=== PATIENT | male | born 1995 | race African-American/Black ===

== ENCOUNTER 2016-10-21 16:10 | Emergency (ER) | payer SELFPAY ==
[~2016-10-21] VITALS: Ht 180.3 cm; Wt 68.0 kg
--- NOTE | 2016-10-21 16:30 | Emergency Room Report ---
History of Present Illness General Chief Complaint: Upper Respiratory Illness Source: Patient Present Illness HPI 21-year-old male presents emergency department complaining of dry cough x2 weeks denies nausea vomiting fevers chills denies productive sputum denies runny nose. Patient states in the past he has had a history of bronchitis. Patient states he took Robitussin with no relief he feels that it increased his coughing. She states he is up-to-date with vaccinations denies ill contacts or recent travel, denies rashes. Has history of asthma, COPD or smoking. Denies CP , Palpitations, LOC, AMS, dizziness, Changes in Vision, Sensation, paresthesias , or a sudden severe headache. Allergies: Coded Allergies: No Known Allergies (Unverified , 10/21/16) Patient History Past Medical History: see triage record Past Surgical History: none Pertinent Family History: none Immunizations: UTD Reviewed Nursing Documentation: PMH: Agreed, PSxH: Agreed Nursing Documentation-PMH Past Medical History: No Stated History Review of Systems All Other Systems: negative except mentioned in HPI Physical Exam Vital Signs Date Time Temp Pulse Resp B/P Pulse Ox O2 Delivery O2 Flow Rate FiO2 10/21/16 16:15 98.8 83 14 99/61 97 10/21/16 16:23 Room Air Sp02 EP Interpretation: reviewed, normal General Appearance: no apparent distress, alert, GCS 15, non-toxic Head: normocephalic, atraumatic Eyes: bilateral eye PERRL, bilateral eye normal inspection ENT: hearing grossly normal, normal pharynx, no angioedema, normal voice Neck: full range of motion, supple/symm/no masses Respiratory: chest non-tender, lungs clear, normal breath sounds, speaking full sentences Cardiovascular #1: regular rate, rhythm, no edema Cardiovascular #2: 0 carotid (R), 0 carotid (L), 0 radial (R), 0 radial (L), 0 femoral (R), 0 femoral (L), 0 dorsalis pedis (R), 0 dorsalis pedis (L) Gastrointestinal: non tender, soft, no guarding, no rebound Rectal: deferred Genitourinary: normal inspection, no CVA tenderness Musculoskeletal: back normal, gait/station normal, normal range of motion, non- tender, no calf tenderness Neurologic: alert, oriented x3, responsive, motor strength/tone normal, sensory intact, speech normal Psychiatric: judgement/insight normal, memory normal, mood/affect normal, no suicidal/homicidal ideation Skin: normal color, no rash, warm/dry, well hydrated Lymphatic: no adenopathy Medical Decision Making PA Attestation Dr. Singh is my supervising Physician whom patient management has been discussed with. Diagnostic Impression: Primary Impression: Upper respiratory infection Qualified Codes: J06.9 - Acute upper respiratory infection, unspecified; B97.89 - Other viral agents as the cause of diseases classified elsewhere ER Course 21-year-old male presents emergency department complaining of dry cough x2 weeks denies nausea vomiting fevers chills denies productive sputum denies runny nose. Patient states in the past he has had a history of bronchitis. Patient states he took Robitussin with no relief he feels that it increased his coughing. She states he is up-to-date with vaccinations denies ill contacts or recent travel. Has history of asthma, COPD or smoking. Ddx considered but are not limited to URI, pneumonia, PE, strep pharyngitis, meningitis. Vital signs: Pt. is afebrile, the remaining VS are WNL H&PE are most consistent with URI- no meningeal signs, oropharynx is not involved, no evidence of bacterial infection at this time. ORDERS: none required at this time, the diagnosis is clinical ED INTERVENTIONS: None required at this time. --PT. EDUCATION: Discussed antibiotic resistance with inappropriate prescribing of antibiotics for viral illnesses. Discussed signs and symptoms to indicate viral illness versus bacterial illness. DISCHARGE: At this time pt. is stable for d/c to home. Will provide printed patient care instructions, and any necessary prescriptions. Care plan and follow up instructions have been discussed with the patient prior to discharge. Last Vital Signs Date Time Temp Pulse Resp B/P Pulse Ox O2 Delivery O2 Flow Rate FiO2 10/21/16 16:23 83 14 Room Air 10/21/16 16:15 98.8 99/61 97 Disposition: HOME, SELF-CARE Condition: Stable Scripts Albuterol Sulfate* (ALBUTEROL SULFATE MDI*) 8.5 Gm Hfa.aer.ad 2 PUFF INH Q4H, #1 INH 0 Refills Prov: Radha Waters.Cyndi 10/21/16 Codeine/Promethazine Hcl* (PROMETHAZINE-CODEINE SYRUP*) 118 Ml Syrup 5 ML ORAL Q6H Y for For Cough, #118 ML 0 Refills Prov: Radha Waters 10/21/16 Patient Instructions: Upper Respiratory Infection, Adult Additional Instructions: Take medications as directed. Follow up with PCP in 3-5 days Return sooner to ED if new symptoms occur, or current symptoms become worse. Do not drink alcohol, drive, or operate heavy machinery while taking Cough syrup as this may cause drowsiness. - Please note that this Emergency Department Report was dictated using [employer] technology software, occasionally this can lead to erroneous entry secondary to interpretation by the dictation equipment. Radha Waters Oct 21, 2016 16:30
[2016-10-21] MEDS ORDERED: PROMETHAZINE-C118 M1 ORAL (16:32)
[2016-10-21] MEDS ORDERED: ALBUTEROL SULF8.5 GM INH (16:32)
[2016-10-21 16:38] VITALS: BP 107/70
== END 2016-10-21 16:38 | disposition home or self-care (01) ==
LOC: EMR 16:30
DX: J06.9 Acute upper respiratory infection, unspecified (principal); B97.89 Other viral agents as the cause of diseases classified elsewhere
CPT/HCPCS: 99284